=== PATIENT | female | born 1965 | race Caucasian/White ===

== ENCOUNTER 2020-09-10 16:55 | Emergency (ER) | payer MEDICARE, OTHER, SELFPAY ==
--- NOTE | ~2020-09-10 | CT_ITS ---
EXAMINATION: CT cervical spine wo con DATE: 09/10/2020 17:40 INDICATION: Posterior neck pain. History of spinal fusion. TECHNIQUE: Computed tomography (CT) of the cervical spine was performed without intravenous contrast. The dose-length product was 289 mGy-cm. Automated exposure control and iterative reconstruction tech nique were employed. COMPARISON: None FINDINGS: Straightening of cervical lordosis. Status post anterior cervical fusion and discectomy at C5-C7. Vertebral body heights are maintained. No acute fracture or traumatic malalignment. No signifi cant paraspinal soft tissue abnormality. Odontoid process within normal limits. IMPRESSION: 1. No acute fracture. Reviewed, dictated and finalized at location A. IMPRESSION: 1. No acute fracture.
[2020-09-10 17:10] VITALS: BP 121/84; PULSE 79; RESP 20; TEMP 36.6; O2SAT 97
--- NOTE | 2020-09-10 17:32 | ED.GENADULT ---
HPI - General Adult General Chief complaint: Unspecified Stated complaint: trouble swallowing Time Seen by Provider: 09/10/20 17:32 Source: patient and family Mode of arrival: ambulatory Limitations: no limitations History of Present Illness HPI narrative: Patient comes in with cervical spine pain. She had a dental procedure done on . She had a dilation and curettage done on Friday. She had been uncomfortable after her dental procedure. She says she has had moderately severe neck pain since Friday pm. This has been associated with some pain and tingling down her left arm. She has had a cervical fusion and has had significant neck pain in the past. Onset (ago): day(s) Location: neck Radiation: non-radiation Severity: moderate and severe Severity scale (1-10): 8 Quality: burning and sharp Pain Consistency: constant Relieving factors: other (minimal relief with narcotic and with muscle relaxer) Exacerbating factors: none Associated symptoms: denies other symptoms Related Data Home Medications Medication Instructions Recorded Confirmed citalopram 40 mg PO DAILY 09/10/20 09/10/20 omeprazole 40 mg PO DAILY 09/10/20 09/10/20 Allergies Allergy/AdvReac Type Severity Reaction Status Date / Time codeine Allergy Unknown Verified 09/10/20 17:15 erythromycin base Allergy Unknown Verified 09/10/20 17:15 metronidazole [From Flagyl] Allergy Unknown Verified 09/10/20 17:15 Sulfa (Sulfonamide Allergy Unknown Verified 09/10/20 17:15 Antibiotics) tetracycline Allergy Unknown Verified 09/10/20 17:15 Review of Systems Constitutional: Constitutional: Reports no additional constitutional complaints Eyes: Eyes: Reports no additional eye complaints ENT: Reports system reviewed and no additional complaints, except as documented Cardiovascular: Cardiovascular: Reports no additional cardiovascular complaints Respiratory: Respiratory: Reports no additional respiratory complaints Gastrointestinal: Gastrointestinal: Reports no additional gastrointestinal complaints Genitourinary: Genitourinary: Reports no additional female genitourinary complaints Musculoskeletal: Musculoskeletal: Reports no additional musculoskeletal complaints Integumentary/Breasts: Skin/Breast: Reports system reviewed and no additional complaints, except as docu Neurologic: Reports system reviewed and no additional complaints, except as documented Psychiatric: Psychiatric: Reports no additional psychiatric complaints Endocrine: Endocrine: Reports no additional endocrine complaints Hematologic/Lymphatic: Hematologic/Lymphatic: Reports no additional hematologic/lymphatic complaints Allergic/Immunologic: Allergic/Immunologic: Reports no additional allergic/immunologic complaints [facility] Past Medical History Medical History (Updated 09/10/20 @ 21:28 by Reji Monteiro MD) Cervical vertebral fusion Fibromyalgia GERD (gastroesophageal reflux disease) Surgical History Surgical History (Updated 09/10/20 @ 21:28 by Reji Monteiro MD) H/O tubal ligation Hx of tonsillectomy Status post lumbar laminectomy Family History Family History (Updated 09/10/20 @ 21:30 by Reji Monteiro MD) Father Vascular dementia AAA (abdominal aortic aneurysm) Mother COPD (chronic obstructive pulmonary disease) Rheumatoid arteritis Social History Social History (Updated 09/10/20 @ 21:31 by Reji Monteiro MD) Smoking status: Never smoker Alcohol intake: never Substance use: never Living arrangements: with family Exam Const: General: cooperative, healthy appearing and no acute distress Nutritional Appearance: average body habitus Orientation/consciousness: oriented to person Limitations: no limitations HENMT: Head: normal to inspection Ears: hearing grossly normal bilaterally, external ears normal and TM's normal bilaterally General nose exam: Normal external nose present Face and sinus: normal facial exam Mouth: Yes Normal oral and palatal
[2020-09-10] MEDS: BACLOFEN 10 MG TABLET 20 MG PO (18:28)
[2020-09-10] MEDS: KETOROLAC (*BKC) 60 MG/2 ML VIAL IM (18:29)
[2020-09-10] MEDS: DEXAMETHASONE 4 MG TABLET 12 MG PO (18:29)
[2020-09-10 18:57] VITALS: BP 104/51; PULSE 69; RESP 14; O2SAT 98
== END 2020-09-10 18:58 | disposition home or self-care (01) ==
PROVIDERS: Emergency Provider Emergency Medicine
DX: M54.2 Cervicalgia (principal); M48.02 Spinal stenosis, cervical region
CPT/HCPCS: 72125; 96372; 99283; 99284; A9270; J1885; J8540